=== PATIENT | female | born 1975 | race Two or more races ===

== ENCOUNTER 2024-05-01 12:51 | Emergency (ER) | payer BC, OTHER ==
[~2024-05-01] VITALS: Ht 157.5 cm; Wt 56.8 kg
[2024-05-01] MEDS: ondansetron 4mg rapidly disintigrating tab PO ONE (15:41)
[2024-05-01] MEDS: acetaminophen 325mg tablet PO ONE (15:42)
[2024-05-01] MEDS ORDERED: IBUP-862 PO (16:00)
[2024-05-01] MEDS ORDERED: METH-798 PO (16:00)
[2024-05-01 16:48] VITALS: BP 127/65; PULSE 88; RESP 16; TEMP 98; O2SAT 98
[2024-05-02] MEDS ORDERED: PRED50TA PO (15:54)
== END 2024-05-01 16:51 | disposition home or self-care (01) ==
LOC: ER 12:52
DX: S16.1XXA Strain of muscle, fascia and tendon at neck level, initial encounter (principal); S50.01XA Contusion of right elbow, initial encounter; S80.01XA Contusion of right knee, initial encounter; S50.311A Abrasion of right elbow, initial encounter; F07.81 Postconcussional syndrome; S09.8XXA Other specified injuries of head, initial encounter; Y08.89XA Assault by other specified means, initial encounter; Y93.89 Activity, other specified; Y92.89 Other specified places as the place of occurrence of the external cause; Y99.8 Other external cause status
CPT/HCPCS: 72040; 99283

== ENCOUNTER 2024-05-02 12:36 | Emergency (ER) | payer BC, OTHER ==
[~2024-05-02] VITALS: Ht 154.9 cm; Wt 57.2 kg
[~2024-05-02 12:36] MED LIST: IBUP-862 PO; METH-798 PO
[2024-05-02 12:52] VITALS: BP 114/71; PULSE 55; TEMP 98.3; O2SAT 100
[2024-05-02] MEDS ORDERED: PRED50TA PO (15:54)
[2024-05-02 16:11] VITALS: RESP 16
[2024-05-02] MEDS: ketorolac trometh 30MG/ML vial 30 MG/ML VIAL IM ONE (16:11)
== END 2024-05-02 16:20 | disposition home or self-care (01) ==
LOC: ER 12:37
DX: S16.1XXA Strain of muscle, fascia and tendon at neck level, initial encounter (principal); S80.00XA Contusion of unspecified knee, initial encounter; Z79.899 Other long term (current) drug therapy; Z79.1 Long term (current) use of non-steroidal anti-inflammatories (NSAID); Y08.89XA Assault by other specified means, initial encounter; Y93.89 Activity, other specified; Y92.89 Other specified places as the place of occurrence of the external cause; Y99.8 Other external cause status
CPT/HCPCS: 70450; 72125; 96372; 99285; J1885